=== PATIENT | female | born 1975 | race Two or more races ===

== ENCOUNTER 2018-07-06 01:44 | Emergency (ER) | payer SELFPAY ==
[2018-07-06 01:52] VITALS: TEMP 99.1
--- NOTE | 2018-07-06 02:52 | ED PDOC ---
HPI: Psych/Substance Abuse Time Seen by Provider: 07/06/18 01:55 Chief Complaint (Nursing): Psychiatric Evaluation Chief Complaint (Provider): Psychiatric Evaluation History Per: Patient, EMS Current Symptoms Are (Timing): Still Present Suicide/Self Injury Attempted (Context): None Additional Complaint(s): 42 year old female with a history of schizoaffective disorder as per EMS presents to the ED via EMS for evaluation after walking into police station requesting help for vaginal and rectal bleeding. When came into the ER, pt requested blankets to rest. when i went to see her, she stated she didnt have rectal or vaginal bleeding but just wants to rest and sleep as she is undomiciled. pt denies any other complaints. PMD: none Past Medical History Reviewed: Historical Data, Nursing Documentation, Vital Signs, Unable To Obtain Vital Signs: Last Vital Signs Temp 99.1 F 07/06/18 01:46 Pulse 122 H 07/06/18 01:46 Resp 18 07/06/18 01:46 BP 152/74 H 07/06/18 01:46 Pulse Ox 99 07/06/18 01:46 - Medical History PMH: No Chronic Diseases - Surgical History Surgical History: No Surg Hx - Family History Family History: States: Unknown Family Hx - Social History Current smoker - smoking cessation education provided: No Alcohol: None Drugs: Denies - Allergies Allergies/Adverse Reactions: Allergies Allergy/AdvReac Type Severity Reaction Status Date / Time benztropine [From Cogentin] Allergy RASH Verified 07/06/18 01:46 Review of Systems ROS Statement: Except As Marked, All Systems Reviewed And Found Negative Physical Exam - Physical Exam Appears: Positive for: Well (pt resting with sheet on top of her, sleeping in no distress), Non-toxic (pt states she wants to go home. pt denies pain or other concerns.) Neurologic/Psych: Positive for: Alert, Oriented - ECG O2 Sat by Pulse Oximetry: 99 Pulse Ox Interpretation: Normal Medical Decision Making Medical Decision Making: In triage, patient complained of vaginal and rectal bleeding. On visit, she d enies any bleeding. She did not want to be seen or examined. Instead, patient admitted she is homeless and wanted to rest for the night. Patient walked out of the ED without being treated or evaluated further. Scribe Attestation: Documented by Zahra Guardado, acting as a scribe for Giles Moore MD Provider Scribe Attestation: All medical record entries made by the Scribe were at my direction and personally dictated by me. I have reviewed the chart and agree that the record accurately reflects my personal performance of the history, physical exam, medical decision making, and the department course for this patient. I have also personally directed, reviewed, and agree with the discharge instructions and disposition. Disposition - Clinical Impression Clinical Impression: Vaginal bleeding - Patient ED Disposition Is Patient to be Admitted: No - Disposition Disposition: Left W/O Treatment Disposition Time: 02:54 Condition: STABLE Forms: [employer] (Setswana)
[2018-07-06 05:10] VITALS: BP 149/70; PULSE 85; RESP 17
[2018-07-07 15:14] VITALS: O2SAT 99
== END 2018-07-06 02:00 | disposition left against medical advice (07) ==
LOC: H.ER 01:44
DX: N93.9 Abnormal uterine and vaginal bleeding, unspecified (principal); Z86.59 Personal history of other mental and behavioral disorders; Z59.0 Homelessness